=== PATIENT | female | born 1995 | race American Indian/Alaskan Native ===

== ENCOUNTER 2020-08-06 12:08 | Emergency (ER) | payer MEDICAID, OTHER ==
[2020-08-06 12:22] VITALS: BP 105/81
--- NOTE | 2020-08-06 14:00 | Emergency Department Report ---
ED ENT HPI - General Chief complaint: Sore Throat Stated complaint: THROAT PAIN Time Seen by Provider: 08/06/20 13:09 Source: patient Mode of arrival: Ambulatory Limitations: No Limitations - History of Present Illness Initial comments: Patient is a 25-year-old female presents emergency room complaints of a sore throat that began yesterday. She states that she does have discomfort with swallowing but is still able to tolerate p.o. intake. She denies any fever, nausea, vomiting, diarrhea, shortness of breath, chest pain. She states that she does have a past medical history of asthma and states that she needs a new prescription for a rescue inhaler but denies any asthma exacerbation. She denies any allergies to medications. She states her last menstrual cycle was around 2 weeks ago. - Related Data Previous Rx's Medication Instructions Recorded Last Taken Type Penicillin Vk [Veetids TAB] 500 mg PO BID 10 Days #40 tablet 08/06/20 Unknown Rx Allergies Allergy/AdvReac Type Severity Reaction Status Date / Time No Known Allergies Allergy Unverified 08/06/20 12:18 ED Dental HPI - General Chief complaint: Sore Throat Stated complaint: THROAT PAIN Time Seen by Provider: 08/06/20 13:09 Source: patient Mode of arrival: Ambulatory Limitations: No Limitations - Related Data Previous Rx's Medication Instructions Recorded Last Taken Type Penicillin Vk [Veetids TAB] 500 mg PO BID 10 Days #40 tablet 08/06/20 Unknown Rx Allergies Allergy/AdvReac Type Severity Reaction Status Date / Time No Known Allergies Allergy Unverified 08/06/20 12:18 ED Review of Systems ROS: Stated complaint: THROAT PAIN Other details as noted in HPI Comment: All other systems reviewed and negative ED Past Medical Hx - Past Medical History Previous Medical History?: No - Surgical History Past Surgical History?: No - Medications Home Medications: Home Medications Medication Instructions Recorded Confirmed Last Taken Type Penicillin Vk [Veetids TAB] 500 mg PO BID 10 Days #40 tablet 08/06/20 Unknown Rx ED Physical Exam - General Limitations: No Limitations General appearance: alert, in no apparent distress - Head Head exam: Present: atraumatic, normocephalic - Eye Eye exam: Present: normal appearance - ENT ENT exam: Present: mucous membranes moist, TM's normal bilaterally, normal external ear exam, other (bilateral tonsilar hypertropy with exudates and clare thema, uvula is midline, no uvular edema or deviation, tolerating secretions, no muffled voice, no trismus, no tongue elevation) - Respiratory Respiratory exam: Present: normal lung sounds bilaterally. Absent: respiratory distress, wheezes, rales, rhonchi, stridor, chest wall tenderness, accessory muscle use, decreased breath sounds, prolonged expiratory - Cardiovascular Cardiovascular Exam: Present: regular rate, normal rhythm, normal heart sounds. Absent: systolic murmur, diastolic murmur, rubs, gallop - Neurological Exam Neurological exam: Present: alert, oriented X3 - Psychiatric Psychiatric exam: Present: normal affect, normal mood - Skin Skin exam: Present: warm, dry, intact ED Course Vital Signs 08/06/20 08/06/20 12:21 14:21 Temperature 99 F Pulse Rate 113 H 92 H Respiratory 18 Rate Blood Pressure 105/81 [Right] O2 Sat by Pulse 98 Oximetry ED Medical Decision Making - Lab Data Vital Signs 08/06/20 08/06/20 12:21 14:21 Temperature 99 F Pulse Rate 113 H 92 H Respiratory 18 Rate Blood Pressure 105/81 [Right] O2 Sat by Pulse 98 Oximetry - Medical Decision Making Patient is a 25-year-old female presents emergency room complaints of a sore throat that began yesterday. She states that she does have discomfort with swallowing but is still able to tolerate p.o. intake. She denies any fever, nausea, vomiting, diarrhea, shortness of breath, chest pain. She states that she does have a past medical history of asthma and states that she needs a new prescription for a rescue inhaler but denies any asthma exacerbation. She denies any allergies to medications. She states her last menstrual cycle was around 2 weeks ago. on exam: bilateral tonsilar hypertropy with exudates and erythema, uvula is midline, no uvular edema or deviation, tolerating secretions, no muffled voice, no trismus, no tongue elevation. Examination Consistent with tonsillitis. Initial vitals with tachycardia which improved upon repeat without intervention. No signs of peritonsillar abscess. Advised patient Please take medication as prescribed. Increase your water intake. May alternate Tylenol or ibuprofen as needed for discomfort. May do warm salt water gargles 3 times a day. May use [id number] throat spray or throat lozenges. throw away your toothbrush. Do not drink after others or allow others to drink after you. Follow-up with a primary care doctor for reexamination. Return to emergency room for new or worsening symptoms. Critical care attestation.: If time is entered above; I have spent that time in minutes in the direct care of this critically ill patient, excluding procedure time. ED Disposition Clinical Impression: Tonsillitis Disposition: DC-01 TO HOME OR SELFCARE Is pt being admited?: No Does the pt Need Aspirin: No Condition: Stable Instructions: Tonsillitis, [id number] Additional Instructions: Please take medication as prescribed. Increase your water intake. May alternate Tylenol or ibuprofen as needed for discomfort. May do warm salt water gargles 3 times a day. May use [id number] throat spray or throat lozenges. throw away your toothbrush. Do not drink after others or allow others to drink after you. Follow-up with a primary care doctor for reexamination. Return to emergency room for new or worsening symptoms. Prescriptions: Penicillin Vk [Veetids TAB] 500 mg PO BID 10 Days #40 tablet Referrals: OLMAN KRISHNAN MD [Staff Physician] - 2-[address] [facility] [Provider Group] - 2-3 Days [facility], [LAB/CONTRACT] - 2-3 Days Time of Disposition: 13:59 Print Language: UGANDAN
== END 2020-08-06 14:25 | disposition home or self-care (01) ==
LOC: EDSEX → ED 12:08
DX: J03.80 Acute tonsillitis due to other specified organisms (principal)
CPT/HCPCS: 99282

== ENCOUNTER 2020-10-13 08:16 | Emergency (ER) | payer OTHER ==
[2020-10-13] MEDS ORDERED: IBUPROFEN 600 MG TAB PO ONE (08:29)
--- NOTE | 2020-10-13 08:33 | Emergency Department Report ---
ED General Adult HPI - General Chief complaint: Headache Stated complaint: SICK Source: patient Mode of arrival: Ambulatory Limitations: No Limitations - History of Present Illness Initial comments: 25-year-old morbid obese -[place] female presents to the emergency room for headache, nausea and vomiting, fever chills and diarrhea that started last night. Patient reports she last vomited this morning. She has not had a Covid test. States she took ibuprofen last night. Her last menstrual period was 10/04/2020. She does not currently have a primary care provider. She does have a past medical history of asthma but has not been on any medication since she moved from [place]. -: Last night Location: head Severity scale (0 -10): 6 Quality: aching Consistency: constant Improves with: none Worsens with: none Associated Symptoms: denies other symptoms Treatments Prior to Arrival: none - Related Data Previous Rx's Medication Instructions Recorded Last Taken Type Penicillin Vk [Veetids TAB] 500 mg PO BID 10 Days #40 tablet 08/06/20 Unknown Rx Cetirizine HCl [ZyrTEC 10mg cap] 10 mg PO QDAY #20 capsule 10/13/20 Unknown Rx Ondansetron [Zofran Odt] 4 mg PO Q8HR PRN #12 tab.rapdis 10/13/20 Unknown Rx Allergies Allergy/AdvReac Type Severity Reaction Status Date / Time No Known Allergies Allergy Unverified 08/06/20 12:18 ED Review of Systems ROS: Stated complaint: SICK Other details as noted in HPI Constitutional: chills, fever ENT: congestion Respiratory: cough, shortness of breath Gastrointestinal: nausea, vomiting, diarrhea Genitourinary: denies: urgency, dysuria, discharge Musculoskeletal: denies: back pain, joint swelling, arthralgia Skin: denies: rash, lesions Neurological: denies: headache, weakness, paresthesias Psychiatric: denies: anxiety, depression Hematological/Lymphatic: denies: easy bleeding, easy bruising ED Past Medical Hx - Past Medical History Hx Asthma: Yes - Surgical History Past Surgical History?: No - Social History Smoking Status: Current Every Day Smoker Substance Use Type: None - Medications Home Medications: Home Medications Medication Instructions Recorded Confirmed Last Taken Type Penicillin Vk [Veetids TAB] 500 mg PO BID 10 Days #40 tablet 08/06/20 Unknown Rx Cetirizine HCl [ZyrTEC 10mg cap] 10 mg PO QDAY #20 capsule 10/13/20 Unknown Rx Ondansetron [Zofran Odt] 4 mg PO Q8HR PRN #12 tab.rapdis 10/13/20 Unknown Rx ED Physical Exam - General Limitations: No Limitations General appearance: alert, in no apparent distress, obese - Head Head exam: Present: atraumatic, normocephalic - Eye Eye exam: Present: normal appearance - ENT ENT exam: Present: mucous membranes moist - Neck Neck exam: Present: normal inspection, full ROM - Respiratory Respiratory exam: Present: rhonchi. Absent: chest wall tenderness, accessory muscle use - Cardiovascular Cardiovascular Exam: Present: regular rate, normal rhythm. Absent: systolic murmur, diastolic murmur, rubs, gallop - GI/Abdominal GI/Abdominal exam: Present: soft. Absent: distended, tenderness - Extremities Exam Extremities exam: Present: normal inspection - Back Exam Back exam: Present: normal inspection, full ROM - Neurological Exam Neurological exam: Present: alert, oriented X3, normal gait - Psychiatric Psychiatric exam: Present: normal affect, normal mood - Skin Skin exam: Present: warm, dry, intact, normal color. Absent: rash ED Course Vital Signs 10/13/20 10/13/20 08:22 08:23 Temperature 99.4 F 99.4 F Pulse Rate 106 H 104 H Respiratory 18 20 Rate Blood Pressure 149/80 Blood Pressure 143/60 [Right] O2 Sat by Pulse 95 94 Oximetry ED Medical Decision Making - Lab Data Result diagrams: 10/13/20 08:59 10/13/20 08:59 - Radiology Data Radiology results: report reviewed [facility] [address] [place] [address] XRay Report Signed Patient: CLINTON SMALLS MR#: [id number] : 1995 Acct:[id number] Age/Sex: 25 / F ADM Date: 10/13/20 Loc: ED Attending Dr: Ordering Physician: VIRGINIA YOO Date of Service: 10/13/20 Procedure(s): XR chest routine 2V Accession Number(s): [id number] cc: VIRGINIA YOO Fluoro Time In Minutes: CHEST 2 VIEWS INDICATION / CLINICAL INFORMATION: sob,cough and rales. COMPARISON: None available. FINDINGS: SUPPORT DEVICES: None. HEART / MEDIASTINUM: No significant abnormality. LUNGS / PLEURA: No significant pulmonary or pleural abnormality. No pneumothorax. ADDITIONAL FINDINGS: No significant additional findings. IMPRESSION: 1. No acute findings. Signer Name: Sharan Julio MD Signed: 10/13/2020 8:56 AM Workstation Name: [id number] Transcribed By: CW Dictated By: EKATERINA JULIO MD Electronically Authenticated By: EKATERINA JULIO MD Signed Date/Time: 10/13/20855 DD/ 5 TD/TT: - Medical Decision Making 25-year-old morbid obese -[place] female presents to the emergency room for headache, nausea and vomiting, fever chills and diarrhea that started last night. Patient reports she last vomited this morning. She has not had a Covid test. States she took ibuprofen last night. Her last menstrual period was 10/04/2020. She does not currently have a primary care provider. She does have a past medical history of asthma but has not been on any medication since she moved from [place]. Chest x-ray CBC CMP. Critical care attestation.: If time is entered above; I have spent that time in minutes in the direct care of this critically ill patient, excluding procedure time. ED Disposition Clinical Impression: Viral syndrome Disposition: DC-01 TO HOME OR SELFCARE Is pt being admited?: No Does the pt Need Aspirin: No Condition: Stable Instructions: Viral Respiratory Infection, [id number] Additional Instructions: Your symptoms appear most consistent with a nonspecific viral syndrome. However, given this current pandemic, COVID-19 is in the differential of possibilities. Despite your previous negative COVID-19 test, I do recommend repeat outpatient Covid 19 testing. In the meantime, isolate/quarantine yo urself and stay away from anyone who is elderly, immunocompromised or chronically ill. You can use ibuprofen every 6-8 hours and Tylenol every 4-8 hours, using the dosing on the back of the bottle, as needed for any fever or body aches. Return to the emergency department with any worsening of your symptoms, development of chest pain or shortness of breath, or with any acute distress. Prescriptions: Ondansetron [Zofran Odt] 4 mg PO Q8HR PRN #12 tab.rapdis PRN Reason: Nausea And Vomiting Cetirizine HCl [ZyrTEC 10mg cap] 10 mg PO QDAY #20 capsule Referrals: PRIMARY CARE, [Primary Care Provider] - 3-5 Days [facility] [Provider Group] - 3-5 Days Forms: Work/School Release Form(ED)
[2020-10-13 08:41] VITALS: BP 149/80
--- NOTE | 2020-10-13 09:01 | XRay Report ---
CHEST 2 VIEWS INDICATION / CLINICAL INFORMATION: sob,cough and rales. COMPARISON: None available. FINDINGS: SUPPORT DEVICES: None. HEART / MEDIASTINUM: No significant abnormality. LUNGS / PLEURA: No significant pulmonary or pleural abnormality. No pneumothorax. ADDITIONAL FINDINGS: No significant additional findings. IMPRESSION: 1. No acute findings. Signer Name: Sharan Hargrove MD Signed: 10/13/2020 8:56 AM Workstation Name: [id number]
[2020-10-13] MEDS ORDERED: ONDANSETRON 4 MG ODT TAB PO ONE (09:37)
[2020-10-13 09:59] LABS: Basophils % (Auto) 0.2 % (0.0-1.8); Eosinophils # (Auto) 0.2 K/mm3 (0.0-0.4); Eosinophils % (Auto) 2.7 % (0.0-4.3); Hematocrit 41.8 % (30.3-42.9); Hemoglobin 13.7 gm/dl (10.1-14.3); Lymphocytes # (Auto) 2.5 K/mm3 (1.2-5.4); Lymphocytes % (Auto) 31.4 % (13.4-35.0); Mean Corpuscular HGB Conc 33 % (30-34); Mean Corpuscular Volume 84 fl (79-97); Monocytes # (Auto) 0.8 K/mm3 (0.0-0.8); Monocytes % (Auto) 9.5 % (0.0-7.3); Platelet Count 237 K/mm3 (140-440); Red Blood Count 5.01 M/mm3 (3.65-5.03); Red Cell Distribution Width 14.9 % (13.2-15.2)
[2020-10-13 10:13] LABS: Alanine Aminotransferase 28 units/L (7-56); Albumin 3.7 g/dL (3.9-5); Blood Urea Nitrogen 6 mg/dL (7-17); Calcium 8.9 mg/dL (8.4-10.2); Hemolysis Index 9
[2020-10-13 10:14] LABS: BUN/Creatinine Ratio 9
== END 2020-10-13 10:41 | disposition home or self-care (01) ==
LOC: ED 08:16
DX: B34.9 Viral infection, unspecified (principal); J45.909 Unspecified asthma, uncomplicated; F17.200 Nicotine dependence, unspecified, uncomplicated; Z79.899 Other long term (current) drug therapy
CPT/HCPCS: 36415; 71046; 80053; 85025; Q0162